=== PATIENT | male | born 1975 | race Caucasian/White ===

== ENCOUNTER 2016-11-03 11:43 | Day surgery (SDC) | payer BC ==
[2016-11-02 11:05] VITALS: BMI 33.6
[~2016-11-03 11:43] MED LIST: LACTATED RINGERS 1,000 ML IV SCH
[2016-11-03] MEDS ORDERED: LIDOCAINE 1% 20 ML VIAL (10MG/ML) FOR IV START INTRADERMA ONE (12:16)
[2016-11-03] MEDS ORDERED: GLYCOPYRROLATE 0.2 MG/ML 2 ML VIAL ONE (12:58)
[2016-11-03] MEDS ORDERED: LIDOCAINE 1% INJ 10MG/ML (20 ML MDV) ONE (12:58)
[2016-11-03] MEDS ORDERED: PROPOFOL 10 MG/ML 20 ML VIAL IV ONE (12:58)
--- NOTE | 2016-11-03 13:17 | P.PCN ---
Date of Procedure: 11/03/16 Preoperative Diagnosis: Postoperative Diagnosis: Procedure(s) Performed: Procedure: Total colonoscopy. Preoperative diagnosis: Rectal bleeding and history of polyps. Postoperative diagnosis: 1. Sigmoid diverticulosis with no evidence of acute diverticulitis or strictures. 2. No polyps or tumors seen. 3. Low-grade internal hemorrhoids without bleeding at the time of this exam. Preparation: HalfLytely prep. Sedation: Was provided by anesthesia. Brief clinical history: The patient is a 41-year-old male who is referred for this evaluation because of intermittent rectal bleeding. The patient had colonoscopy several years back and had polyps removed. He has no new abdominal complaints or anemia. Procedure: With the patient on his left lateral decubitus position and after informed consent and adequate sedation, the perianal area was inspected and it did not show any fissures or fistulas. There were no masses felt on digital rectal examination. The Olympus CFQ 160L video colonoscope was then inserted in the rectum in the usual fashion and advanced to the cecum. There were few diverticular orifices seen scattered in the sigmoid with no evidence of acute diverticulitis or strictures. The mucosa appeared healthy. No polyps or tumors were seen. I retroflexed the endoscope in the rectum before the endoscope was withdrawn. Low-grade internal hemorrhoids were noted with no evidence of bleeding. The patient tolerated the procedure well. Plan: The patient was reassured. Discussed dietary measures and local care for hemorrhoids. He will follow up with you as planned and further plans can be made based on his course. With the history of polyps, I suggested repeat exam in 5 years. Implants: Indications for Procedure: Operative Findings: Description of Procedure:
[2016-11-03 14:13] VITALS: BP 116/76; PULSE 98; RESP 16; TEMP 97.7
== END 2016-11-03 14:05 | disposition home or self-care (01) ==
LOC: ORWHC2ENDO 11:43
DX: K62.5 Hemorrhage of anus and rectum (principal); Z86.010 Personal history of colon polyps; K57.30 Diverticulosis of large intestine without perforation or abscess without bleeding; K64.8 Other hemorrhoids; F17.200 Nicotine dependence, unspecified, uncomplicated; M32.9 Systemic lupus erythematosus, unspecified; Z79.1 Long term (current) use of non-steroidal anti-inflammatories (NSAID)
CPT/HCPCS: 45378; J2001; J2704

== ENCOUNTER 2017-03-09 09:15 | Day surgery (SDC) | payer BC ==
[2017-03-04 15:41] VITALS: BMI 33.2
[~2017-03-09 09:15] MED LIST changes: +ALBUTEROL NEB (CONC) 2.5 MG/0.5 ML INHALATION ONE; +ATROPINE SULFATE 0.4 MG/ML 1 ML VIAL IM ONE; +LACTATED RINGERS 1,000 ML IV ONE; +LIDOCAINE 2% (PF) 20 MG/ML 2 ML AMP INHALATION ONE
[2017-03-09 09:40] VITALS: RESP 16; TEMP 97.5
[2017-03-09] MEDS ORDERED: MIDAZOLAM 2 MG/2 ML VIAL ONE (10:34)
[2017-03-09] MEDS ORDERED: KETAMINE 10 MG/ML 20 ML VIAL ONE (10:34)
[2017-03-09] MEDS ORDERED: LIDOCAINE 1% INJ 10MG/ML (20 ML MDV) ONE (10:34)
[2017-03-09] MEDS ORDERED: PROPOFOL 10 MG/ML 20 ML VIAL IV ONE (10:34)
[2017-03-09] MEDS ORDERED: LIDOCAINE 2% INJ 20 MG/ML INTRATRACH ONE (10:44)
[2017-03-09 11:16] VITALS: BP 125/81; PULSE 73
--- NOTE | 2017-03-09 12:00 | PCN ---
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 POSTOP DIAGNOSIS: Normal airway. The patient patient's procedure was done in room #1, [facility]. SCREW DOWN provided unconscious sedation with general anesthesia. There was informed consent. There was universal timeout. After the patient was adequately sedated, the bronchoscope was inserted through the right nostril. It passed through the right nasopharynx into the oropharynx. The hypopharynx was identified and topicalized. The arytenoids looked a little large, but not abnormal. The anterior commissure, true cords, false cords, arytenoids, piriform sinuses, right and left vallecula and epiglottis all otherwise appeared normal. There was no obstruction above the glottic opening. Everything seemed to be normal. Once topicalization was complete, the bronchoscope was pushed through the glottic opening into the trachea. Trachea appeared completely normal. Pictures were taken. There was no subglottic stenosis, granulation tissue, tracheomalacia or granulation tissue or any tracheal stenosis. Pictures were taken. The bronchoscope was withdrawn. The patient will be recovered. MMODL / IJN: [id number] /
== END 2017-03-09 11:38 | disposition home or self-care (01) ==
LOC: ORWHC2ENDO 09:15
PROVIDERS: ATTEND Internal Medicine Critical Care Medicine
DX: J39.8 Other specified diseases of upper respiratory tract (principal); J44.9 Chronic obstructive pulmonary disease, unspecified; M54.9 Dorsalgia, unspecified; G89.29 Other chronic pain; L93.0 Discoid lupus erythematosus; F17.210 Nicotine dependence, cigarettes, uncomplicated; Z79.891 Long term (current) use of opiate analgesic; Z79.1 Long term (current) use of non-steroidal anti-inflammatories (NSAID)
CPT/HCPCS: 31622; J2001 ×2; J2250; J2704; 31645

== ENCOUNTER → 2021-02-03 | Outpatient (CLI) | payer BC | END | disposition home or self-care (01) | LOC: LABWHC1 12:51 | PROVIDERS: ATTEND Family Medicine | DX: Z20.822 Contact with and (suspected) exposure to COVID-19 (principal) | CPT/HCPCS: U0003; C9803 ==

== ENCOUNTER 2022-05-26 09:34 | Day surgery (SDC) | payer BC ==
[~2022-05-26 09:34] MED LIST changes: -ALBUTEROL NEB (CONC) 2.5 MG/0.5 ML INHALATION ONE; -ATROPINE SULFATE 0.4 MG/ML 1 ML VIAL IM ONE; -LACTATED RINGERS 1,000 ML IV ONE; +LIDOCAINE 1% (10MG/ML) FOR IV START INTRADERMA PRN; -LIDOCAINE 2% (PF) 20 MG/ML 2 ML AMP INHALATION ONE
[2022-05-26 10:07] VITALS: RESP 16; TEMP 96.3
[2022-05-26] MEDS ORDERED: PROPOFOL 10 MG/ML 20 ML VIAL IV ONE (10:38)
[2022-05-26] MEDS ORDERED: LIDOCAINE 2% INJ 20 MG/ML (2 ML VIAL) ONE (10:38)
--- NOTE | 2022-05-26 10:41 | P.GSHP ---
History of Present Illness H&P Date: 05/26/22 Chief Complaint: Colon cancer screening 47-year-old male here today for colonoscopy. No bowel complaints. No rectal bleeding. No family history of colon cancer. He apparently had his last colonoscopy 10 years ago. He was told he had polyps. Past Medical History Past Medical History: GERD/Reflux, Musculoskeletal Disorder, Pneumonia, Skin Disorder, Thyroid Disorder Additional Past Medical History / Comment(s): "lupus of the skin", chronic back pain, wakes up "choking", History of Any Multi-Drug Resistant Organisms: None Reported Past Surgical History: Hernia Repair, Orthopedic Surgery Additional Past Surgical History / Comment(s): LEFT MIDDLE FINGER-CYST REMOVED, RIGHT SHOULDER X 2, cyst removed from groin Past Anesthesia/Blood Transfusion Reactions: No Reported Reaction Additional Past Anesthesia/Blood Transfusion Reaction / Comment(s): diff intubation with hernia surgery 01/2017 Smoking Status: Current every day smoker - Past Family History Mother Family Medical History: No Reported History Medications and Allergies Home Medications Medication Instructions Recorded Confirmed Type Hydroxychloroquine Sulfate 100 mg PO BID 05/22/22 05/22/22 History Levothyroxine Sodium [Synthroid] 100 mcg PO DAILY 05/22/22 05/22/22 History Allergies Allergy/AdvReac Type Severity Reaction Status Date / Time No Known Allergies Allergy Verified 05/26/22 09:59 Surgical - Exam Vital Signs Temp Pulse Resp BP Pulse Ox 96.3 F L 95 16 128/75 96 05/26/22 10:05 05/26/22 10:05 05/26/22 10:05 05/26/22 10:05 05/26/22 10:05 Physical exam: General: Well-developed, well-nourished HEENT: Normocephalic, sclerae nonicteric Abdomen: Nontender, nondistended Extremities: No edema Neuro: Alert and oriented Assessment and Plan (1) Colon cancer screening Narrative/Plan: Will proceed with colonoscopy at this time. Current Visit: Yes Status: Acute Code(s): Z12.11 - ENCOUNTER FOR SCREENING FOR MALIGNANT NEOPLASM OF COLON SNOMED Code(s): 882956777
--- NOTE | 2022-05-26 10:55 | P.PCN ---
Date of Procedure: 05/26/22 Procedure(s) Performed: PREOPERATIVE DIAGNOSIS: Colon cancer screening POSTOPERATIVE DIAGNOSIS: Diverticulosis PROCEDURE: Colonoscopy ANESTHESIA: MAC SURGEON: Rolf Mcgee M.D. SPECIMENS: None ENDOSCOPIC PROCEDURE: The patient was placed on the endoscopy table in the left decubitus position. The Olympus colonoscope was inserted into the anus and passed under direct visualization to the base of the cecum. The appendiceal orifice was visualized. From that point the scope was slowly withdrawn inspe cting all surfaces carefully. There were no neoplastic inflammatory or polypoid lesions throughout the cecum, ascending, transverse, descending, sigmoid and rectum. There was mild diverticulosis noted. Digital rectal examination was normal. The patient was taken to the recovery room in stable condition per anesthesia guidelines. RECOMMENDATIONS: Resume diet. Repeat colonoscopy 10 years.
[2022-05-26 11:15] VITALS: BP 122/91; PULSE 65
== END 2022-05-26 11:47 | disposition home or self-care (01) ==
LOC: ORWHC2ENDO 09:34
PROVIDERS: ATTEND Surgery
DX: Z12.11 Encounter for screening for malignant neoplasm of colon (principal); K57.30 Diverticulosis of large intestine without perforation or abscess without bleeding; K21.9 Gastro-esophageal reflux disease without esophagitis; E07.9 Disorder of thyroid, unspecified; M32.9 Systemic lupus erythematosus, unspecified; G89.29 Other chronic pain; F17.200 Nicotine dependence, unspecified, uncomplicated; Z79.899 Other long term (current) drug therapy
CPT/HCPCS: 45378; J2704; J2001

== ENCOUNTER → 2024-06-22 | Outpatient (CLI) | payer BC ==
[2024-06-23 02:20] LABS: Basophils # (A) 0.02 X 10*3/uL (0.00-0.10); Basophils % (A) 0.4 %; Eosinophils # (A) 0.07 X 10*3/uL (0.04-0.35); Eosinophils % (A) 1.5 %; HCT 39.5 % (39.6-50.0); HGB 13.1 g/dL (13.0-17.0); Lymphocytes # (A) 1.46 X 10*3/uL (0.90-5.00); Lymphocytes % (A) 30.8 %; MCH 30.8 pg (27.0-32.0); MCHC 33.2 g/dL (32.0-37.0); MCV 92.9 FL (80.0-97.0); Mean Platelet Volume 9.5 FL (9.5-12.2); Monocytes # (A) 0.42 X 10*3/uL (0.20-1.00); Monocytes % (A) 8.9 %; NRBC Per 100 WBC 0 X 10*3/uL (0.00-0.01); Neutrophils # (A) 2.76 X 10*3/uL (1.80-7.70); Neutrophils % (A) 58.2 %; Platelet Count 182 X 10*3/uL (140-440); RBC 4.25 X 10*6/uL (4.40-5.60); RDW 12.2 % (11.5-14.5); WBC 4.74 X 10*3/uL (4.50-10.00)
[2024-06-23 02:47] LABS: ALT 25 U/L (10-49); AST 33 U/L (14-35); Albumin 4.4 g/dL (3.8-4.9); Albumin/Globulin Ratio 1.91 Ratio (1.60-3.17); Alkaline Phosphatase 53 U/L (41-126); Blood Urea Nitrogen 16.5 mg/dL (9.0-27.0); Calcium 8.9 mg/dL (8.7-10.3); Carbon Dioxide 25.9 mmol/L (21.6-31.8); Chloride 106 mmol/L (96-109); Globulin 2.3 g/dL (1.6-3.3); Glucose 73 mg/dL (70-110); Potassium 4.5 mmol/L (3.5-5.5); Sodium 140 mmol/L (135-145); Total Bilirubin 0.6 mg/dL (0.3-1.2); Total Protein 6.7 g/dL (6.2-8.2)
== END | disposition home or self-care (01) ==
LOC: LABWHC1 15:39
DX: L93.2 Other local lupus erythematosus (principal); Z79.899 Other long term (current) drug therapy
CPT/HCPCS: 36415; 80053; 85025